=== PATIENT | female | born 1995 | race African-American/Black ===

== ENCOUNTER 2019-05-13 13:00 | Emergency (ER) | payer MEDICAID ==
[~2019-05-13] VITALS: Ht 160 cm; Wt 49.9 kg
[~2019-05-13 13:00] MED LIST: HYDR-3164 PO; NAPR500T8 PO
[2019-05-13 13:05] VITALS: BP 129/70
--- NOTE | 2019-05-13 13:26 | PHYS DOC ---
Past Medical History Past Medical History: Asthma Past Surgical History: No Surgical History Alcohol Use: None Drug Use: None Adult General Chief Complaint Chief Complaint: VAGINAL PROBLEM HPI HPI Patient is a 23 year old female who presents with states she had unprotected sex and the last 2 days she's noticed an increase in white discharge. Patient states she also has vaginal discomfort but states that she can't explain what it feels like but it is not pain issues discomfort in general. Patient denies abdominal pain, nausea, vomiting. Patient states she would like to be treated f or sexual transmitted diseases. Patient is currently on her menses. Review of Systems Review of Systems Constitutional: Denies fever or chills [] Eyes: Denies change in visual acuity, redness, or eye pain [] HENT: Denies nasal congestion or sore throat [] Respiratory: Denies cough or shortness of breath [] Cardiovascular: No additional information not addressed in HPI [] GI: Denies abdominal pain, nausea, vomiting, bloody stools or diarrhea [] : vaginal discharge. Denies dysuria or hematuria [] Musculoskeletal: Denies back pain or joint pain [] Integument: Denies rash or skin lesions [] Neurologic: Denies headache, focal weakness or sensory changes [] All other systems were reviewed and found to be within normal limits, except as documented in this note. Current Medications Current Medications Current Medications Medications (Trade) Dose Ordered Sig/Gumaro Start Time Stop Time Status Last Admin Dose Admin Azithromycin (Zithromax) 1,000 mg 1X ONCE 05/13/19 13:30 05/13/19 13:31 DC 05/13/19 14:00 1,000 MG Ceftriaxone Sodium (Rocephin Im) 250 mg 1X ONCE 05/13/19 13:30 05/13/19 13:31 DC 05/13/19 14:00 250 MG Ondansetron HCl (Zofran Odt) 4 mg 1X ONCE 05/13/19 13:30 05/13/19 13:31 DC 05/13/19 14:00 4 MG Allergies Allergies Allergies Coded Allergies Type Severity Reaction Last Updated Verified levofloxacin Allergy Intermediate rash 01/17/15 No Physical Exam Physical Exam Constitutional: Well developed, well nourished, no acute distress, non-toxic appearance. [] HENT: Normocephalic, atraumatic, bilateral external ears normal, oropharynx moist, no oral exudates, nose normal. [] Eyes: PERRLA, EOMI, conjunctiva normal, no discharge. [] Neck: Normal range of motion, no tenderness, supple, no stridor. [] Cardiovascular:Heart rate regular rhythm, no murmur [] Lungs & Thorax: Bilateral breath sounds clear to auscultation [] Abdomen: Bowel sounds normal, soft, no tenderness, no masses, no pulsatile masses. [] Skin: Warm, dry, no erythema, no rash. [] Back: No tenderness, no CVA tenderness. [] Extremities: No tenderness, no cyanosis, no clubbing, ROM intact, no edema. [] Neurologic: Alert and oriented X 3, normal motor function, normal sensory function, no focal deficits noted. [] Psychologic: Affect normal, judgement normal, mood normal. Normal physical Exam. (See pelvic exam) [] Current Patient Data Vital Signs Vital Signs Date Time Temp Pulse Resp B/P (MAP) Pulse Ox O2 Delivery O2 Flow Rate FiO2 05/13/19 13:05 98.2 88 16 129/70 (89) 99 Room Air 98.2 Lab Values Laboratory Tests Test 05/13/19 13:00 05/13/19 13:06 Urine Collection Type Unknown Urine Color Yellow Urine Clarity Clear Urine pH 6.5 Urine Specific [place] 1.025 Urine Protein Negative mg/dL (NEG-TRACE) Urine Glucose (UA) Negative mg/dL (NEG) Urine Ketones (Stick) Negative mg/dL (NEG) Urine Blood Trace (NEG) Urine Nitrite Negative (NEG) Urine Bilirubin Negative (NEG) Urine Urobilinogen Dipstick 1.0 mg/dL (0.2 mg/dL) Urine Leukocyte Esterase Negative (NEG) Urine RBC 0 /HPF (0-2) Urine WBC Rare /HPF (0-4) Urine Squamous Epithelial Cells Occ /LPF Urine Bacteria 0 /HPF (0-FEW) POC Urine HCG, Qualitative Hcg negative (Negative) Microbiology 05/13/19 Wet Prep - Final, Complete EKG EKG [] Radiology/Procedures Radiology/Procedures [] Course & Med Decision Making Course & Med Decision Making Patient is a 23 year old female who presents with states she had unprotected sex and the last 2 days she's noticed an increase in white discharge. Patient states she also has vaginal discomfort but states that she can't explain what it feels like but it is not pain issues discomfort in general. Patient denies abdominal pain, nausea, vomiting. Patient states she would like to be treated for sexual transmitted diseases. Patient is currently on her menses. Patient denies any vaginal itching or irritation or lesions. Lungs are clear to auscultation all lobes alert and oriented. Ambulatory. Afebrile. Abdomen is soft and nontender. Patient denies diarrhea or dysuria. Patient is treated for sexually transmitted diseases chlamydia and gonorrhea. Patient is told that she'll be called in 48 hours if her cultures come back positive only. Pelvic Exam: Rail Switchman present Abdomen: Nontender External Genitalia: Normal Skin Speculum: Normal vaginal mucosa, White cervical discharge Bimanual: No adnexal masses or tenderness, No CMT Dragon Disclaimer Dragon Disclaimer This electronic medical record was generated, in whole or in part, using a voice recognition dictation system. Departure Departure Impression: Primary Impression: Sexually transmissible disease Additional Impression: Vaginal discharge Disposition: 01 HOME, SELF-CARE Condition: STABLE Referrals: NEL WASHINGTON MD (PCP) Patient Instructions: Sexually Transmitted Disease Additional Instructions: You have been treated for sexually transmitted diseases today. You will be called only if her cultures are positive in 48 hours. Follow-up with your primary care doctor if needed. Problem Qualifiers CLEMENTINA GONCALVES APRN May 13, 2019 13:26
[2019-05-13] MEDS ORDERED: ONDANSETRON ODT 4 MG TAB.RAPDIS. PO ONE (13:30)
[2019-05-13] MEDS ORDERED: AZITHROMYCIN 250 MG TABLET. PO ONE (13:30)
[2019-05-13] MEDS ORDERED: cefTRIAXone IM 250 MG VIAL IM ONE (13:30)
[2019-05-13 13:32] LABS: BILIRUBIN,URINE NEGATIVE (NEG); CLARITY,URINE CLEAR; COLOR,URINE YELLOW; NITRITE,URINE NEGATIVE (NEG); PH,URINE 6.5; PROTEIN,URINE NEGATIVE (NEG-TRACE)
[2019-05-13 13:47] LABS: BACTERIA,URINE 0 /HPF (0-FEW); RBC,URINE 0 /HPF (0-2); SQUAMOUS EPITHELIAL CELL,UR OCC /LPF; WBC,URINE RARE /HPF (0-4)
[2019-05-14 17:14] LABS: GC PROBE Negative (Negative)
== END 2019-05-13 14:08 | disposition home or self-care (01) ==
LOC: ER 13:02
DX: A64 Unspecified sexually transmitted disease (principal); J45.909 Unspecified asthma, uncomplicated
CPT/HCPCS: 81001; 81025; 87491; 87591; 96372; 99284; J0696; Q0111; Q0144; Q0162